=== PATIENT | female | born 1975 | race African-American/Black ===

== ENCOUNTER 2018-12-24 23:00 | Emergency (ER) | payer BC, OTHER ==
[2018-12-24] MEDS ORDERED: diphenhydrAMINE 50 MG/ML VIAL ONE (23:56)
[2018-12-24] MEDS ORDERED: Metoclopramide HCl 10 MG/2 ML VIAL ONE (23:56)
[2018-12-25 00:02] LABS: #Basophils 0.1 thou/uL (0.0-0.2); #Eosinphils 0.2 thou/uL (0.0-0.7); #Monocytes 0.6 thou/uL (0.11-0.59); #Neutrophils 4.5 thou/uL (1.40-6.50); %Basophils 0.8 % (0.0-1.0); %Eosinophils 2.2 % (0.0-10.0); %Lymphocytes 35.5 % (21.0-51.0); %Monocytes 7.1 % (0.0-10.0); %Neutrophils 54.3 % (42.0-75.0); Hemoglobin 13.1 g/dL (12.0-16.0); Mean Corpuscular HGB CONC 34.5 g/dL (32.0-36.0); Mean Corpuscular Hemoglobin 30.7 pg (27.0-31.0); Mean Corpuscular Volume 88.8 fL (78.0-98.0); Mean Platelet Volume 6.7 fL (7.4-10.4); Platelet Count 368 thou/uL (130-400); RBC Distribution Width 11.9 % (11.5-14.5); Red Blood Cell (RBC) Count 4.25 mill/uL (4.20-5.40); White Blood Cell (WBC) Count 8.3 thou/uL (4.8-10.8)
[2018-12-25 00:08] LABS: PTT 28.5 SEC (22.9-36.1); Prothrombin Time 13.3 SEC (12.0-14.7)
[2018-12-25 00:24] LABS: ALT (SGPT) 10 U/L (8-55); AST (SGOT) 13 U/L (5-34); Albumin 4.3 g/dL (3.5-5.0); Alkaline Phosphatase 75 U/L (40-110); Anion Gap 9 mmol/L (10-20); BUN (Urea Nitrogen) 17 mg/dL (7.0-18.7); Bilirubin, Total 0.2 mg/dL (0.2-1.2); Calc. Creatinine Clearance 0 mL/min (70-130); Calcium 9.1 mg/dL (7.8-10.44); Carbon Dioxide 26 mmol/L (22-29); Chloride 107 mmol/L (98-107); Estimated GFR-MDRD 67; Globulin 2.8 g/dL (2.4-3.5); Glucose 101 mg/dL (70-105); Potassium 4.4 mmol/L (3.5-5.1); Protein, Total 7.1 g/dL (6.0-8.3); Sodium 138 mmol/L (136-145)
[2018-12-25 01:13] LABS: Pregnancy Test - Urine (BHCG) Negative (Negative)
[2018-12-25 01:14] LABS: Pregu Control Background? CLEAR/WHITE (CLR/WHITE); Pregu Control Bar Appear? YES (CONTROL BAR); Specific Gravity 1.056 (1.002-1.036)
[2018-12-25 01:29] LABS: Amphetamine Not Detected (NotDetected); Barbiturates Screen Not Detected (NotDetected); Benzodiazepine Screen Not Detected (NotDetected); Cocaine Metabolite Screen Not Detected (NotDetected); Medtox Control Line Valid? VALID (VALID); Medtox Reader # READER 1; Methadone Not Detected (NotDetected); Methamphetamine Not Detected (NotDetected); Opiate Screen Not Detected (NotDetected); Oxycodone Screen Not Detected (NotDetected); Phencyclidine (PCP) Not Detected (NotDetected); THC/Cannabinoid Screen Not Detected (NotDetected); Tricyclic Screen Not Detected (NotDetected)
--- NOTE | 2018-12-25 07:42 | CT ---
PRELIMINARY REPORT/[facility]/EMERGENCY AFTER HOURS PROCEDURE PROCEDURE INFORMATION: Exam: CT Angiography Head Without And With Contrast Exam date and time: 12/25/2018 12:26 AM Clinical history: 43 years old, female; Patient HX: Er 13. Family called because PT was acting differently, having difficulty forming words; Left arm weakness. Patient states that it comes in wave s and she can tell when the next episode is going to happen. HX of migraines. TECHNIQUE: Imaging protocol: Computed tomographic angiography of the head without and with intravenous contrast. 3D rendering: MIP reconstructed images were created and reviewed. COMPARISON: No relevant prior studies available. FINDINGS: Right internal carotid artery: Unremarkable. Intracranial segment is patent with no significant stenosis. No aneurysm. Right anterior cerebral artery: Unremarkable. No occlusion or significant stenosis. No aneurysm. Right middle cerebral artery: Unremarkable. No occlusion or significant stenosis. No aneurysm. Right posterior cerebral artery: Unremarkable. No occlusion or significant stenosis. No aneurysm. Right vertebral artery: Unremarkable. No occlusion or significant stenosis. No aneurysm. Left internal carotid artery: Unremarkable. Intracranial segment is patent with no significant stenosis. No aneurysm. Left anterior cerebral artery: Unremarkable. No occlusion or significant stenosis. No aneurysm. Left middle cerebral artery: Unremarkable. No occlusion or significant stenosis. No aneurysm. Left posterior cerebral artery: Unremarkable. No occlusion or significant stenosis. No aneurysm. Left vertebral artery: Unremarkable. No occlusion or significant stenosis. No aneurysm. Basilar artery: Unremarkable. No occlusion or significant stenosis. No aneurysm. HEAD: Brain: Unremarkable. No hemorrhage. No significant white matter disease. No edema. Ventricles: Normal. No ventriculomegaly. Bones/joints: Unremarkable. No acute fracture. Sinuses: Visualized sinuses are normal. No fluid levels. Mastoid air cells: Visualized mastoids are normal. No mastoid effusion. Soft tissues: Unremarkable. IMPRESSION: No evidence of arterial occlusion or a hemodynamically significant stenosis. No aneurysm or vascular malformation. PROCEDURE INFORMATION: Exam: CT Angiography Neck With Contrast Exam date and time: 12/25/2018 12:26 AM Clinical history: 43 years old, female; Patient HX: Er 13. Family called because PT was acting differently, having difficulty forming words; Left arm weakness. Patient states that it comes in wave s and she can tell when the next episode is going to happen. HX of migraines. TECHNIQUE: Imaging protocol: Computed tomography angiography of the neck with intravenous contrast. 3D rendering: MIP reconstructed images were created and reviewed. COMPARISON: No relevant prior studies available. FINDINGS: VASCULATURE: Right common carotid artery: Unremarkable. No stenosis. No dissection or occlusion. Right internal carotid artery: There is a retropharyngeal course of the right internal carotid artery . The whole No stenosis. No dissection or occlusion. Right external carotid artery: Unremarkable. No occlusion or stenosis of the origin. Right vertebral artery: Unremarkable. No stenosis. No dissection or occlusion. Left common carotid artery: Unremarkable. No stenosis. No dissection or occlusion. Left internal carotid artery: Unremarkable extracranial segment. No stenosis. No dissection or occlusion. Left external carotid artery: Unremarkable. No occlusion or stenosis of the origin. Left vertebral artery: Unremarkable. No stenosis. No dissection or occlusion. NECK: Thyroid: The thyroid gland is heterogeneous in appearance. Bones/joints: No acute fracture. Soft tissues: Normal. No significant soft tissue swelling. IMPRESSION: No acute findings. No evidence of occlusion or dissection. COMMENT: Reference per NASCET criteria for degree of stenosis: Mild: less than 50% stenosis. Moderate: 50- 69% stenosis. Severe: 70-94% stenosis. Near occlusion: 95-99% stenosis. Thank you for allowing us to participate in the care of your patient. Dictated and Authenticated by: Betzy Sandoval MD 12/25/2018 12:55 AM Central Time ([place] & [place]) FINAL REPORT CT ANGIOGRAM OF THE HEAD AND NECK: Date: 12/25/2018 COMPARISON: None. HISTORY: Migraine headaches, altered mental status, weakness. FINDINGS: I agree with the preliminary report. Imaged lung apices unremarkable. Paranasal sinuses and mastoid air cells unremarkable. Limited assessment of the soft tissue structures of the neck appears unremarkable. The arterial structures of the neck are patent. No hemodynamically significant stenosis on the basis of NASCET criteria noted. The provided images include coronal and sagittal 3-D reformatted imaging of the head and neck. There is a medialized retropharyngeal course of the right internal carotid solo ry proximally. No saccular aneurysm, high-grade stenosis, or vascular occlusion is seen involving the intracranial a rterial structures. IMPRESSION: No acute findings. Code QA. Transcribed Date/Time: 12/25/2018 7:50 AM
--- NOTE | 2018-12-25 07:57 | CT ---
PRELIMINARY REPORT/[facility]/EMERGENCY AFTER HOURS PROCEDURE: PROCEDURE INFORMATION: Exam: CT Head Without Contrast Exam date and time: 12/25/2018 12:24 AM Clinical history: 43 years old, female; Altered mental status/memory loss and weakness, extremity; Pa tient HX: Er 13. Family called because PT was acting differently, having difficulty forming words; Le ft arm weakness. Patient states that it comes in waves and she can tell when the next episode is keily g to happen. HX of migraines. TECHNIQUE: Imaging protocol: Computed tomography of the head without contrast. COMPARISON: No relevant prior studies available. FINDINGS: Brain: Normal. No hemorrhage. Unremarkable white matter. No mass effect. Ventricles: Normal. No ventriculomegaly. Bones/joints: Unremarkable. No acute fracture. Sinuses: Visualized sinuses are unremarkable. No fluid levels. Mastoid air cells: Visualized mastoid air cells are well aerated. Soft tissues: Unremarkable. IMPRESSION: No acute intracranial abnormality. Thank you for allowing us to participate in the care of your patient. Dictated and Authenticated by: Betzy Sandoval MD 12/25/2018 12:46 AM Central Time ([place] & [place]) FINAL REPORT EMERGENT AFTER HOURS CT BRAIN WITHOUT CONTRAST: FINDINGS/IMPRESSION: I agree with the findings and impression given in the preliminary report per [facility] physician. No lisa dence of acute intracranial abnormality. POS: ZACK
== END 2018-12-25 02:18 | disposition home or self-care (01) ==
LOC: ERS 23:00
DX: R53.1 Weakness (principal); G43.909 Migraine, unspecified, not intractable, without status migrainosus; J45.909 Unspecified asthma, uncomplicated; F41.9 Anxiety disorder, unspecified
CPT/HCPCS: 36415; 70450; 70496; 70498; 80053; 80306; 81025; 85025; 85610; 85730; 93005; 96361; 96374; 96375; J1200; J2765

== ENCOUNTER 2018-12-27 17:11 | Observation (INO) | payer BC ==
[2018-12-27] MEDS ORDERED: diphenhydrAMINE 50 MG/ML VIAL ONE (18:16)
[2018-12-27] MEDS ORDERED: Metoclopramide HCl 10 MG/2 ML VIAL ONE (18:16)
[2018-12-27 18:21] LABS: #Basophils 0.1 thou/uL (0.0-0.2); #Eosinphils 0.2 thou/uL (0.0-0.7); #Lymphocytes 2.5 thou/uL (1.20-3.40); #Monocytes 0.4 thou/uL (0.11-0.59); %Basophils 0.9 % (0.0-1.0); %Eosinophils 2.9 % (0.0-10.0); %Lymphocytes 35.1 % (21.0-51.0); %Monocytes 6.1 % (0.0-10.0); Hemoglobin 14.1 g/dL (12.0-16.0); Mean Corpuscular HGB CONC 32.1 g/dL (32.0-36.0); Mean Corpuscular Hemoglobin 28.6 pg (27.0-31.0); Mean Corpuscular Volume 89.1 fL (78.0-98.0); Mean Platelet Volume 6.5 fL (7.4-10.4); Platelet Count 412 thou/uL (130-400); Red Blood Cell (RBC) Count 4.93 mill/uL (4.20-5.40); White Blood Cell (WBC) Count 7.2 thou/uL (4.8-10.8)
[2018-12-27 18:25] LABS: Bilirubin Negative (Negative); Blood, Urine Negative (Negative); Clarity Clear (Clear); Glucose, Urine (Dipstick) Normal (Negative); Leukocyte Negative Leu/uL (Negative); Nitrite Negative (Negative); Protein, Urine (Dipstick) Negative (Neg-Trace); Urobilinogen Normal mg/dL (Less than 2)
[2018-12-27 18:35] LABS: Amphetamine Not Detected (NotDetected); Barbiturates Screen Not Detected (NotDetected); Benzodiazepine Screen Not Detected (NotDetected); Cocaine Metabolite Screen Not Detected (NotDetected); Medtox Control Line Valid? VALID (VALID); Medtox Reader # READER 4; Methadone Not Detected (NotDetected); Methamphetamine Not Detected (NotDetected); Opiate Screen Not Detected (NotDetected); Oxycodone Screen Not Detected (NotDetected); Phencyclidine (PCP) Not Detected (NotDetected); THC/Cannabinoid Screen Not Detected (NotDetected); Tricyclic Screen Not Detected (NotDetected)
[2018-12-27 18:41] LABS: ALT (SGPT) 12 U/L (8-55); AST (SGOT) 18 U/L (5-34); Acetaminophen Less than 6.0 mcg/mL (10.0-30.0); Albumin 4.5 g/dL (3.5-5.0); Alcohol Less than 10 mg/dL (Less than 10); Alkaline Phosphatase 66 U/L (40-110); Anion Gap 13 mmol/L (10-20); BUN (Urea Nitrogen) 10 mg/dL (7.0-18.7); Bilirubin, Total 0.4 mg/dL (0.2-1.2); CK (CPK) 118 U/L (29-168); Calc. Creatinine Clearance 0 mL/min (70-130); Calcium 9.6 mg/dL (7.8-10.44); Carbon Dioxide 23 mmol/L (22-29); Chloride 107 mmol/L (98-107); Estimated GFR-MDRD 67; Globulin 3.2 g/dL (2.4-3.5); Glucose 101 mg/dL (70-105); Potassium 4.7 mmol/L (3.5-5.1); Protein, Total 7.7 g/dL (6.0-8.3); Salicylate Less than 8.0 mg/dL (15.0-30.0); Sodium 138 mmol/L (136-145)
--- NOTE | 2018-12-27 18:42 | RAD ---
PORTABLE CHEST: 12/27/18 HISTORY: Headache. Lungs are clear. Heart and mediastinum appears normal. IMPRESSION: Negative chest. POS: AGW
--- NOTE | 2018-12-27 18:53 | CT ---
CT HEAD WITHOUT IV CONTRAST COMPARISON: 12/25/2018 HISTORY: Altered mental status TECHNIQUE: Axial CT imaging at 5 mm intervals from vertex through skull base without contrast FINDINGS: There is no evidence of an acute infarction, hemorrhage, mass effect, or midline shift. The ventricul ar system is normal in size, shape, and position. Visualized paranasal sinuses are clear. Osseous structures appear intact. There has been no interval change when compared to the prior study. IMPRESSION: 1. No acute intracranial abnormality demonstrated.
--- NOTE | 2018-12-27 19:33 | PDOC.FPRHP ---
- History of Present Illness Chief Complaint: Difficulty speaking, headache History of Present Illness: 43-year-old female presents to the ED today complaining of headache and difficulty speaking. Patient stated that she has a history of migraines that she treats with Imitrex. On Monday patient developed a bad headache and she attempted to treat with her home medications with no resolution. But at night it had gotten worse so she went to the emergency department for further evaluation. Work up there including CT head and CTA head and neck was negative for any acute findings. Patient was discharged and later followed up with her PCP Dr. Oates. He started the pt on topiramate and referred for outpt neuro. Today patient developed multiple episodes of worsening headache and difficulty getting out her words accompanied by generalized weakness. Patients mother stated that these episodes last about 5 to 10 minutes at a time and have occurred about 6-7 times today. Patient was re-seen by her PCP who witnessed one of these episodes and subsequently transferred the patient to the emergency department for further evaluation and work up. - Allergies/Adverse Reactions Allergies Allergy/AdvReac Type Severity Reaction Status Date / Time aspirin Allergy Intermediate Verified 12/27/18 22:04 ibuprofen Allergy Intermediate Verified 12/27/18 22:04 - Home Medications Medication Instructions Recorded Confirmed Type ALPRAZolam [Xanax] 0.5 mg PO QID PRN 12/27/18 12/27/18 History Meclizine HCl 25 mg PO DAILY PRN 12/27/18 12/27/18 History Topiramate [Trokendi Xr] 50 mg PO DAILY 12/27/18 12/27/18 History - History PMHx: Migraines, asthma, anxiety PSHx: None FHx: Non contributory Social: No tobacco, occasional alcohol, no illicit drug use - Review of Systems General: denies: fever/chills, weight/appetite/sleep changes Eyes: denies: eye pain, vision changes, other ENT: denies: nasal congestion, rhinorrhea, other Respiratory: denies: cough, shortness of breath Cardiovascular: denies: chest pain, palpitation, edema Gastrointestinal: denies: nausea, vomiting, diarrhea, abdominal pain Genitourinary: denies: incontinence, dysuria, polyuria Skin: denies: rashes, lesions Musculoskeletal: denies: pain, tenderness Neurological: reports: weakness, other (Hedache). denies: numbness, syncope Psychological: reports: anxiety. denies: depression - Vital signs BP: 122/91, Pulse: 86, Resp: 16, Temp: 98.4 (Oral), Pain: 8, O2 sat: 97 on Room Air - Physical Exam Constitutional: NAD, awake, alert and oriented, well developed HEENT: normocephalic and atraumatic, PERRLA, EOMI, no scleral icterus, grossly normal vision, grossly normal hearing, MMM Neck: supple, FROM Heart: RRR, normal S1/S2, no murmurs/rubs/gallops Lungs: CTAB, no respiratory distress, good air movement, no rales/rhonchi, no wheezing Abdomen: soft, non-tender, bowel sounds present Musculoskeletal: normal structure, normal tone -Neurological: Initially: pt displayed no neurologic deficits 3 minute episode: Decreased alertness, following some commands, left sided weakness, aphasia - rapidly resolved Skin: no rash/lesions, good turgor, capillary refill <2 seconds Heme/Lymphatic: no unusual bruising or bleeding, no purpura, no petechia Psychiatric: normal mood and affect, good judgment and insight, intact recent and remote memory FMR H&P: Results - Labs Result Diagrams: 12/27/18 18:11 12/27/18 18:11 Lab results: WBC 7.2 thou/uL (4.8-10.8) 12/27/18 18:11 Hgb 14.1 g/dL (12.0-16.0) 12/27/18 18:11 Hct 44.0 % (36.0-47.0) 12/27/18 18:11 MCV 89.1 fL (78.0-98.0) 12/27/18 18:11 Plt Count 412 thou/uL (130-400) H 12/27/18 18:11 Neutrophils % 55.0 % (42.0-75.0) 12/27/18 18:11 Sodium 138 mmol/L (136-145) 12/27/18 18:11 Potassium 4.7 mmol/L (3.5-5.1) 12/27/18 18:11 Chloride 107 mmol/L (98-107) 12/27/18 18:11 Carbon Dioxide 23 mmol/L (22-29) 12/27/18 18:11 BUN 10 mg/dL (7.0-18.7) 12/27/18 18:11 Creatinine 1.09 mg/dL (0.6-1.1) 12/27/18 18:11 Glucose 101 mg/dL (70-105) 12/27/18 18:11 Calcium 9.6 mg/dL (7.8-10.44) 12/27/18 18:11 Total Bilirubin 0.4 mg/dL (0.2-1.2) 12/27/18 18:11 AST 18 U/L (5-34) 12/27/18 18:11 ALT 12 U/L (8-55) 12/27/18 18:11 Alkaline Phosphatase 66 U/L (40-110) 12/27/18 18:11 Creatine Kinase 118 U/L (29-168) 12/27/18 18:11 Serum Total Protein 7.7 g/dL (6.0-8.3) 12/27/18 18:11 Albumin 4.5 g/dL (3.5-5.0) 12/27/18 18:11 Urine Ketones Negative mg/dL (Negative) 12/27/18 18:01 Urine Blood Negative (Negative) 12/27/18 18:01 Urine Nitrite Negative (Negative) 12/27/18 18:01 Ur Leukocyte Esterase Negative Pricila/uL (Negative) 12/27/18 18:01 - Radiology Interpretation CT scan - head Status: report reviewed by me (No acute intracranial abnormality) Chest x-ray Status: report reviewed by me (Negative CXR) FMR H&P: A/P - Problem List (1) Migraine Current Visit: Yes Status: Chronic Code(s): G43.909 - MIGRAINE, UNSP, NOT INTRACTABLE, WITHOUT STATUS MIGRAINOSUS (2) Complicated migraine Current Visit: Yes Status: Suspected Code(s): G43.109 - MIGRAINE WITH AURA, NOT INTRACTABLE, W/O STATUS MIGRAINOSUS (3) Aphasia Current Visit: Yes Status: Acute Code(s): R47.01 - APHASIA (4) TIA (transient ischemic attack) Current Visit: Yes Status: Suspected Code(s): G45.9 - TRANSIENT CEREBRAL ISCHEMIC ATTACK, UNSPECIFIED - Plan Aphasia, acute AMS, and weakness - Complicated migraine vs Partial seizure vs less likely TIA - Hx of previous migraines - CT headx2 and CTA head and neck negative for acute findings - Neurology consult - EEG and MRI ordered - Bedside dysphagia screen - Continue migraine cocktail for pain - Seizure precautions Anxiety - Resume home xanax Code: Full Dispo: Admit to stroke unit for neuro checks and NIH. EEG, MRI, and neuro consult pending. Expected LOS <48hr FMR H&P: Upper Level - Plan Date/Time: 12/27/181932 I, Agustín Lomax MD, have evaluated this patient and agree with findings/plan as outlined by internal review and audit compliance resident. Pertinent changes/additions are listed here. Carolina Soni is a 43 year old F with a PMH of Migraines and Anxiety who presented to the ED due to persistent migraine. States that she has a long history of migraines that normally last about two days and improve with imitrex. This migraine has been present for 4-5 days and has had no improvement. She was seen in the ED 1-2 days into symptom onset due to worsening of headache and had a negative work up including CT brain and CTA head and neck. She saw her PCP, Dr. Oates, day of admission after she developed episodes of worsening headache with aura accompanied by difficulty with word finding and generalized weakness worse on the left. One of these episodes was witnessed by Dr. Oates which prompted him to recommend that she go to the ED. She had a couple more of these episodes in the ED, witnessed by ERMD and admitting team. Had about 7-8 episodes day of admission. Has never had these episodes before. Appeared drowsy/confused afterwards. In the ED today, she had negative CT brain. CBC and CMP were normal. Serum and Urine Drug screens were negative. She was given Benadryl 25 mg IV, Reglan 10 mg IV and 1 L NS. Vital signs were stable and wnl. On exam, CNII-XII were normal, she had 5 /5 strength in UEs and LEs, no focal deficits noted. No abnormalities seen on exam. Will admit patient to obs stroke. Ordered brain MRI and EEG. Will consult neuro in the AM. Continue migraine cocktail. Anticipate hospital stay < 48 hours. Please see internal review and audit compliance note above for full H&P, which I have reviewed and agree with. Addendum - Attending - Attending Attestation Date/Time: 12/27/18 2215 I personally evaluated the patient and discussed the management with Dr. Hendrix I agree with the History, Examination, Assessment and Plan documented above with any addition or exceptions noted below - 43-year-old female with h/o migraines, anxiety sent to ED today by PCP due to headache and difficulty speaking. Patient stated that she is in history of migraines that she treats with Imitrex. On Monday patient developed a bad headache and she attempted to treat with her home medications with no resolution. But at night it had gotten worse so she went to the emergency department for further evaluation. Work up there including CT head in CTA head and neck was negative for any acute findings. Patient was discharged and later followed up with her PCP Dr. Oates. Today patient developed multiple episodes of worsening headache and difficulty getting out her words accompanied by generalized weakness. Patients mother stated that these episodes last at 5 to 10 minutes at a time. PMH/PSH/Meds/SH reviewed and agree with resident's documentation. Afebrile VSS Exam repeated by me and agree with resident's findings. Labs: WBC=7.2, H/H=14.1/44.0, Nnk=880, Na =138, K=4.7, BUN/Cr=10/1.09. Vaon=588 A/P: 1) Transient aphasia and weakness with SIMS- ?complex migraine vs partial seizure vs TIA- plan for MRI/EEG in AM. Monitor neuro checks. Consult neuro in AM
[2018-12-27] MEDS ORDERED: Ondansetron PF 4 MG/2 ML Vial IVP PRN (21:37)
[2018-12-27] MEDS ORDERED: Acetaminophen 325 MG TAB PO PRN (21:37)
[2018-12-27] MEDS ORDERED: Ondansetron ODT 4 MG TAB SL PRN (21:37)
[2018-12-27] MEDS ORDERED: Ketorolac Tromethamine 30 MG/ML VIAL IVP PRN (21:38)
[2018-12-27 21:51] VITALS: BMI 31.2
[2018-12-28] MEDS: Acetaminophen 325 MG TAB PO PRN ×2 (00:34→21:05)
[2018-12-28] MEDS ORDERED: Meclizine HCl 25 MG TAB PO PRN (01:54)
[2018-12-28] MEDS ORDERED: ALPRAZolam 0.5 MG TAB PO PRN (01:54)
[2018-12-28 05:21] LABS: #Basophils 0.1 thou/uL (0.0-0.2); #Eosinphils 0.3 thou/uL (0.0-0.7); #Lymphocytes 2.7 thou/uL (1.20-3.40); #Monocytes 0.5 thou/uL (0.11-0.59); #Neutrophils 3.6 thou/uL (1.40-6.50); %Basophils 0.9 % (0.0-1.0); %Eosinophils 3.8 % (0.0-10.0); %Lymphocytes 37.8 % (21.0-51.0); %Monocytes 6.6 % (0.0-10.0); Hemoglobin 12.9 g/dL (12.0-16.0); Mean Corpuscular HGB CONC 33.8 g/dL (32.0-36.0); Mean Corpuscular Hemoglobin 30.1 pg (27.0-31.0); Mean Corpuscular Volume 88.9 fL (78.0-98.0); Mean Platelet Volume 6.8 fL (7.4-10.4); Platelet Count 343 thou/uL (130-400); RBC Distribution Width 11.9 % (11.5-14.5); Red Blood Cell (RBC) Count 4.28 mill/uL (4.20-5.40); White Blood Cell (WBC) Count 7.1 thou/uL (4.8-10.8)
[2018-12-28 05:44] LABS: ALT (SGPT) 11 U/L (8-55); AST (SGOT) 16 U/L (5-34); Albumin 3.7 g/dL (3.5-5.0); Alkaline Phosphatase 53 U/L (40-110); Anion Gap 12 mmol/L (10-20); BUN (Urea Nitrogen) 9 mg/dL (7.0-18.7); Bilirubin, Total 0.5 mg/dL (0.2-1.2); Calc. Creatinine Clearance 122 mL/min (70-130); Calcium 8.7 mg/dL (7.8-10.44); Carbon Dioxide 20 mmol/L (22-29); Cardiac Risk 3.4 (Less than 4.5); Chloride 110 mmol/L (98-107); Cholesterol 159 mg/dl (< 200 Desired); Estimated GFR-MDRD 90; Globulin 2.8 g/dL (2.4-3.5); Glucose 93 mg/dL (70-105); HDL Cholesterol 47 mg/dL (>60 Neg Risk); LDL Cholesterol, Calculated 89 mg/dL; Potassium 3.9 mmol/L (3.5-5.1); Protein, Total 6.5 g/dL (6.0-8.3); Sodium 138 mmol/L (136-145); Triglycerides 115 mg/dL (Less than 150)
[2018-12-28] MEDS ORDERED: diphenhydrAMINE 50 MG/ML VIAL IVP SCH (06:00)
[2018-12-28] MEDS ORDERED: Calcium Carbonate 500 MG ChewTAB PO PRN (06:06)
--- NOTE | 2018-12-28 06:11 | PDOC.FM ---
- Subjective Subjective: Overnight pt had 1 additional event witness by her mom at beside. Was similar to previous events where she can feel a "crystal-like" sensation on the side of her head and then becomes aphasic with generalized weakness worse on the left. No pain during the event, slight generalized SIMS after. No bowel or bladder incontinence and no tongue biting. No generalized tonic-clonic movements. Pt is semi-aware during the event, but appears confused and drowsy afterwards but then will return to baseline within 10-15 minutes. Overnight event lasted approx 5 minutes. Denies any CP, SOB, fever/chills, n/v. States she has history of migraines but have previous been resolved with Imitrex. This new events have started within the last week and increased in frequency. No migraine ppx meds in past, recently started Topamax by PCP but was admitted before able to start medication. - Objective MAR Reviewed: Yes Vital Signs & Weight: Vital Signs (12 hours) Temp Pulse Resp BP Pulse Ox 12/28/18 03:36 97.9 F 82 16 116/78 98 12/27/18 23:54 97.8 F 86 16 121/88 98 12/27/18 21:20 98.6 F 68 18 141/98 H 100 Weight Weight 87.906 kg Result Diagrams: 12/28/18 04:54 12/28/18 04:54 Phys Exam - Physical Examination Constitutional: NAD (resting comfortably in bed) HEENT: PERRLA, moist MMs, oral pharynx no lesions no tongue lacerations noted Neck: supple Respiratory: no wheezing, no rales, no rhonchi, clear to auscultation bilateral Cardiovascular: RRR, no significant murmur, no rub Gastrointestinal: soft, non-tender, no distention, positive bowel sounds Musculoskeletal: no edema, pulses present 5/5 strength throughout Neurological: non-focal, normal sensation, moves all 4 limbs CN II-XII intact Psychiatric: normal affect, A&O x 3 Dx/Plan (1) Aphasia Code(s): R47.01 - APHASIA Status: Acute (2) Migraine Code(s): G43.909 - MIGRAINE, UNSP, NOT INTRACTABLE, WITHOUT STATUS MIGRAINOSUS Status: Chronic (3) Complicated migraine Code(s): G43.109 - MIGRAINE WITH AURA, NOT INTRACTABLE, W/O STATUS MIGRAINOSUS Status: Suspected (4) TIA (transient ischemic attack) Code(s): G45.9 - TRANSIENT CEREBRAL ISCHEMIC ATTACK, UNSPECIFIED Status: Suspected - Plan Plan: 43yo F with h/o migraines and anxiety presents for multiple episodes of aphasia , generalized weakness, and confusion admitted for concern for complicated migraines vs partial seziure vs TIA #Aphasia, acute AMS, and weakness - Complicated migraine vs Partial seizure - Hx of previous migraines, but newonset of weakness and increased frequency - very low suspicion for TIA 2/2 complete resolution of sxs within minutes, low risk factors, and frequency of events - Partial seizure vs complicated migraine with quinn-plegia - CT headx2 and CTA head and neck negative for acute findings - Neurology consult, Dr. Sanders, apprec recs - EEG and MRI pending - Bedside dysphagia screen - Continue migraine cocktail for pain prn - Seizure precautions - UDS negative, UA clean, CBC and CMP WNL, TSH normal #H/o migraines - concern for complex migraines with hemiplegia - prn migraine cocktail - Holding topamax at this time due to pt not started at home yet, will await neuro recs and EEG/MRI results #Anxiety, stable - cont home xanax Code: Full VTE: Low risk Diet: Regular IVF: SL Dispo: Admitted to stroke unit for neuro checks and NIH. EEG, MRI, and neuro consult pending. Expected LOS <48hr pending clinical status. Addendum - Attending - Attending Attestation Date/Time: 12/28/18 2881 I personally evaluated the patient and discussed the management with Dr. Dobbins I agree with the History, Examination, Assessment and Plan documented above with any addition or exceptions noted below. Patient under evaluation most likely Complex migraine however prudent and necessary evaluation currently undergoing an EEG, further imaging and Neurology consultation. Stop any further triptans
[2018-12-28] MEDS ORDERED: Aspirin 81 mg Enteric Coated Tablet PO SCH (09:00)
[2018-12-28] MEDS: Metoclopramide HCl 10 MG/2 ML VIAL IVP PRN ×2 (10:20→21:05)
--- NOTE | 2018-12-28 11:11 | MRI ---
MRI BRAIN WITH AND WITHOUT CONTRAST: DATE: 12/28/18 HISTORY: 43-year-old female with seizure disorder and headache. CVA vs. TIA. TECHNIQUE: Multiple sequences obtained in axial, sagittal, and coronal planes; pre and post IV injection of gado linium-based contrast agent: 17 mL MultiHance. FINDINGS: The ventricles are normal in size and configuration. There is no major intraaxial signal abnormality , restricted diffusion, abnormal intraaxial enhancement, mass, midline shift or any other mass effect , recent intraaxial hemorrhage, or extraaxial fluid collection. IMPRESSION: Normal. jn[] POS: TPC
[2018-12-28] MEDS: diphenhydrAMINE 50 MG/ML VIAL IVP PRN ×2 (15:14→21:06)
--- NOTE | 2018-12-29 05:50 | PDOC.FM ---
- Subjective Subjective: Did well overnight, no acute events. Last "episode" was yesterday morning prior to EEG. No episodes during EEG. Slight SIMS yesterday, controlled with meds. No SIMS this morning. Denies any vision changes, focal deficits, n/v, CP, SOB, fever/ chills. Spoke with neurology yesterday who stated EEG and MRI negative, awaiting further recommendations this morning. - Objective MAR Reviewed: Yes Vital Signs & Weight: Vital Signs (12 hours) Temp Pulse Resp BP Pulse Ox 12/29/18 04:00 97.6 F 81 16 97/68 98 12/29/18 00:00 99.3 F 77 16 119/71 98 12/28/18 19:36 99.5 F 83 16 119/88 99 Weight Weight 87.906 kg I&O: 12/27/18 12/28/18 12/29/18 06:59 06:59 06:59 Intake Total 240 1110 Output Total 50 Balance 190 1110 Result Diagrams: 12/28/18 04:54 12/28/18 04:54 EKG Reviewed by me: Yes (NSR on Tele) Phys Exam - Physical Examination Constitutional: NAD (resting comfortably) HEENT: PERRLA, moist MMs Neck: supple Respiratory: no wheezing, no rales, no rhonchi, clear to auscultation bilateral Cardiovascular: RRR, no significant murmur, no rub Gastrointestinal: soft, non-tender, no distention, positive bowel sounds Musculoskeletal: no edema 5/5 strength BL Neurological: non-focal, normal sensation, moves all 4 limbs CN II-XII intact Psychiatric: normal affect, A&O x 3 Dx/Plan (1) Aphasia Code(s): R47.01 - APHASIA Status: Acute (2) Migraine Code(s): G43.909 - MIGRAINE, UNSP, NOT INTRACTABLE, WITHOUT STATUS MIGRAINOSUS Status: Chronic (3) Complicated migraine Code(s): G43.109 - MIGRAINE WITH AURA, NOT INTRACTABLE, W/O STATUS MIGRAINOSUS Status: Suspected (4) TIA (transient ischemic attack) Code(s): G45.9 - TRANSIENT CEREBRAL ISCHEMIC ATTACK, UNSPECIFIED Status: Suspected - Plan Plan: 43yo F with h/o migraines and anxiety presents for multiple episodes of aphasia , generalized weakness, and confusion admitted for concern for complicated migraines vs partial seziure #Aphasia, acute AMS, and weakness - Complicated migraine vs Partial seizure - Hx of previous migraines, but new-onset episodes of weakness, aphasia, and possible post-ictal state. Sxs now resolved. - very low suspicion for TIA 2/2 complete resolution of sxs within minutes, low risk factors, and frequency of events - Partial seizure vs complicated migraine with quinn-plegia - CT headx2 and CTA head and neck negative for acute findings - MRI negative for acute findings - Neurology consult, Dr. Sanders, apprec recs, pt states was told EEG normal, will await official consult report and recommendations - EEG report pending - Continue migraine cocktail for pain prn - Seizure precautions - UDS negative, UA clean, CBC and CMP WNL, TSH normal, Procal 68.16 suggestive of post-seizure state, however non-specific #H/o migraines - concern for complex migraines with hemiplegia - prn migraine cocktail - Holding topamax at this time due to pt not started at home yet, will await neuro recs and EEG/MRI results #Anxiety, stable - cont home xanax Code: Full VTE: Low risk, ambulate with assist Diet: Regular IVF: SL Dispo: Admitted to stroke unit for neuro checks and NIH. EEG and neuro recommendations pending. Expected LOS <48hr pending clinical status and neurology, apprec assistance.
[2018-12-29 15:27] VITALS: BP 120/88; TEMP 98.9
--- NOTE | 2018-12-30 13:57 | CON ---
DATE OF TELEMEDICINE CONSULTATION: 12-30-18 CHIEF COMPLAINT: History of migraine and weakness. HISTORY OF PRESENT ILLNESS: Patient had migraine since Monday. She took sumatriptan at 1:00 p.m. on Monday. She also took her inhaler and Excedrin and she felt like she was having difficulty breathing and she was passing out. She had slurred speech. She had left arm numbness. There was no witnessed account of any seizures or history of seizures. PREVIOUS MEDICAL HISTORY: Patient has history of migraine headaches since the last 11 years and she has asthma and anxiety disorder. PAST SURGICAL HISTORY: None. FAMILY HISTORY: Negative for any neurological illness. SOCIAL HISTORY: She does not smoke. She drinks occasional alcohol. No drug use. REVIEW OF SYSTEMS: PULMONARY: Negative for shortness of breath or cough. GI: Negative for nausea, vomiting, or diarrhea. OPHTHALMOLOGIC: Negative for any vision issues. DERMATOLOGIC: Negative for any skin rash or bleeding diathesis. HEMATOLOGICAL: Negative for any problems, such as anemia. LABORATORY DATA: Her workup includes laboratory workup; white count 7.1, hemoglobin 12.9, hematocrit 38, and platelet count 343. Sodium 138, potassium 3.9, chloride 110, bicarb 20, BUN 9, and creatinine 0.84. Lipid profile was within normal limits. Prolactin 68.16. Toxicology was negative. ER physician's report was reviewed and noted and patient has history of headache , tingling, and episodes of lightheadedness. Patient had an MRI of the brain, which was negative for any acute intracranial injury or insult and it was a normal MRI. PHYSICAL EXAMINATION: VITAL SIGNS: Temperature 99.5, pulse 83, respiratory rate 16, and blood pressure 130/81. GENERAL APPEARANCE: Well-built, well-nourished lady, who seems to be uncomfortable. CHEST: Clear vesicular breathing. CARDIOVASCULAR: S1 and S2 heard. No murmurs. ABDOMEN: Soft and nontender. No organomegaly noted. NEUROLOGICAL EXAMINATION: Higher intellectual functions. Normal orientation to time, place, and person. Appropriate conversation. Cranial nerves, normal extraocular movements. Tongue midline. No atrophy noted. No facial asymmetry. Decreased sensation of face on the left side. Normal hearing to finger rub. Motor bulk normal, tone normal, strength 5/5 on the right side. On the left side, generalized, her strength was 4/5 throughout, both on the right and left side. Muscle groups tested deltoid, biceps, triceps, wrist extension and flexion, finger extension and flexion, iliopsoas, hamstrings, quadriceps, ankle dorsiflexion, plantar flexion, and deep tendon reflexes 1+ throughout. Sensory normal to touch on the right, decreased on the left side. Cerebellar was normal. IMPRESSION: Patient is a 43-year-old lady with history of migraine. I am not sure what these sources of lightheadedness are. Could be related to her migraine and she has left-sided FAL numbness and generalized weakness noted was due to decreased effort as well and her not feeling well. DIAGNOSIS: Most likely complicated migraine. RECOMMENDATIONS: Please monitor for any other neurological changes. It may take her up to one week to recover from these events. I will follow up the patient again tomorrow. Job ID: [id number] MTDD
--- NOTE | 2018-12-31 12:50 | PRG ---
DATE OF SERVICE: 12/29/2018 Please see the note from Dr. Dobbins, for which I agree. The patient was seen, evaluated, discussed, and examined with the residents by bedside. She had 1 little minor spell last night in a stressful situation while the family members around, where she states she felt like she had the aura where she felt like that her left lutheran had "crystals," which is what she has basically been complaining of. Then, she states she had about only 1 or 2 seconds of feeling like she was about to have the slurring of speech and left-sided arm weakness and she did admit that her left arm felt a little bit numb when this happened, but the whole thing was just split seconds and then seemed to resolve. EEG is still pending and we are still waiting to see what Neurology says about her. I want to know what the recommendations are, if we need to consider something like seizure prevention or just headache prevention or possibly both; certainly Depakote could potentially do both. I want to get their opinion if they think these are seizures. I did warn her that if these are seizures, she should not drive for at least six months until we have her seizure-free, so we will see what Neurology says, hopefully be able to discharge her today. Job ID: [id number]
--- NOTE | 2019-01-01 13:49 | DIS ---
DATE OF ADMISSION: 12/27/2018 DATE OF DISCHARGE: 12/29/2018 RESIDENT: Teto Dobbins MD ADMITTING ATTENDING: Shirin Monsalve MD. DISCHARGE ATTENDING: Jules Oates MD CONSULTS: Sultana Sanders MD., Neurology. PROCEDURES: 1. Brain CT on 12/27/2018, demonstrating no acute intracranial abnormality. 2. Chest x-ray on 12/27/2018, demonstrating no acute cardiopulmonary process. 3. Brain MRI on 12/28/2018, demonstrating no intracranial abnormality. 4. EEG on 12/28/2018 in verbal report, no abnormalities, formal read pending. PRIMARY DIAGNOSIS: Complex migraine. SECONDARY DIAGNOSES: 1. History of migraines. 2. Anxiety. DISCHARGE MEDICATIONS: 1. Meclizine 25 mg p.o. daily p.r.n. 2. Xanax 0.5 mg p.o. q.i.d. p.r.n. DISCONTINUED MEDICATIONS: Topiramate XR 50 mg p.o. daily. SIGNIFICANT LABS: White blood cell count 7.1, hemoglobin 12.9, and platelets 343. GFR 90. TSH 0.8199. Prolactin 68.16. UDS and UA clean. HISTORY OF PRESENT ILLNESS AND HOSPITAL COURSE: The patient is a 43-year-old female who presented to the ED, complaining of headache, difficulty speaking. The patient stated that she has a history of migraines, treated with Imitrex and that on Monday developed a severe headache that did not respond to her home medications. She stated that she went into the emergency room, and at that time, had CT and CTA head and neck that were negative for any acute findings. The patient was given medications with resolution of headache and discharged to follow with her primary care physician. She was seen by primary care physician in the morning of admission and was started on topiramate; however, began to experience multiple episodes of the worsening headaches, difficulty with speech and generalized weakness greater on the left. These episodes lasting in 5 to 10 minutes after which she has a 10- to 15-minute episode of confusion and then returned to baseline. These events were happened 6 to 7 times on the day of admission. She was recently seen by her PCP, who witnessed the episodes and subsequently referred the patient to emergency department for further evaluation and management. In the ED, repeat imaging was negative as per above. Family Medicine Team was consulted for further evaluation and management. The patient was admitted to the floor and placed on seizure precautions, was given migraine medications p.r.n. EEG and MRI were ordered. Neurology was consulted. The patient's home Xanax was continued. Initial lab work was unremarkable. Overnight, the patient did have a few more events witnessed by her mother. The patient stated she had a crystal like sensation on the side of her head and becomes aphasic with generalized weakness, worse on the left. She has a generalized headache afterwards. No bowel or bladder incontinence. No tongue biting. No generalized tonic-clonic movements. The patient is semi aware during the event , but does appear confused and drowsy afterwards for 15-20 minutes. The patient denies any chest pain, shortness of breath, fever, chills, nausea, vomiting, or other pain. Neurology was consulted, who saw and examined patient. EEG was obtained. The patient has had one more episode. We then had an uneventful second hospital night with no more events. On the morning of discharge, Neurology saw the patient again and reported that this is most likely a complex migraine. However, stated the patient could follow up as an outpatient and would not be started on any prophylactic medication at this time. The patient was told to discontinue her Imitrex and Topamax. Repeat labs were all again unremarkable. The patient did not have any more events throughout the day. Discharge plan was discussed with the patient and family at bedside, who voiced agreement and understanding of discharge plan to follow up with neurologist, Dr. Hollins and follow up with primary care physician, Dr. Oates within the next week. Return precautions were given. All questions were answered appropriately. DISPOSITION: Stable. DISCHARGE INSTRUCTIONS: 1. Location: Home. 2. Diet: Regular. 3. Activity: As tolerated. 4. Followup: The patient should follow up with her primary care physician, Dr. Oates within [address] Hollins as scheduled. Job ID: [id number] [facility]
== END 2018-12-29 20:30 | disposition home or self-care (01) ==
LOC: ERS 17:11 → 2SE 19:24
PROVIDERS: ADMIT Family Medicine; ATTEND Family Medicine
DX: G43.109 Migraine with aura, not intractable, without status migrainosus (principal); R47.01 Aphasia; R53.1 Weakness; J45.909 Unspecified asthma, uncomplicated; F41.9 Anxiety disorder, unspecified; Z79.899 Other long term (current) drug therapy; Z88.6 Allergy status to analgesic agent; Z88.8 Allergy status to other drugs, medicaments and biological substances
CPT/HCPCS: 36415; 51701; 70450; 70553; 71045; 80053; 80061; 80306; 80307; 81003; 82550; 83735; 84146; 84443; 85025; 85652; 95816; 95819; 96361; 96374; 96375; 96376; G0378; J1200; J2765; J8597

== ENCOUNTER 2019-02-01 14:50 | Emergency (ER) | payer BC ==
[2019-02-01 16:04] LABS: #Eosinphils 0.1 thou/uL (0.0-0.7); #Lymphocytes 2.1 thou/uL (1.20-3.40); #Monocytes 0.4 thou/uL (0.11-0.59); #Neutrophils 2.3 thou/uL (1.40-6.50); %Basophils 0.7 % (0.0-1.0); %Eosinophils 3.1 % (0.0-10.0); %Lymphocytes 42.8 % (21.0-51.0); %Monocytes 7.4 % (0.0-10.0); %Neutrophils 46.1 % (42.0-75.0); Hemoglobin 12.5 g/dL (12.0-16.0); Mean Corpuscular Hemoglobin 29.2 pg (27.0-31.0); Mean Corpuscular Volume 88.3 fL (78.0-98.0); Mean Platelet Volume 6.7 fL (7.4-10.4); Platelet Count 314 thou/uL (130-400); RBC Distribution Width 11.2 % (11.5-14.5); White Blood Cell (WBC) Count 4.9 thou/uL (4.8-10.8)
[2019-02-01 16:26] LABS: ALT (SGPT) 9 U/L (8-55); AST (SGOT) 11 U/L (5-34); Acetaminophen Less than 6.0 mcg/mL (10.0-30.0); Albumin 3.9 g/dL (3.5-5.0); Alcohol Less than 10 mg/dL (Less than 10); Alkaline Phosphatase 70 U/L (40-110); Anion Gap 10 mmol/L (10-20); BUN (Urea Nitrogen) 11 mg/dL (7.0-18.7); Bilirubin, Total 0.3 mg/dL (0.2-1.2); Calc. Creatinine Clearance 0 mL/min (70-130); Carbon Dioxide 26 mmol/L (22-29); Chloride 109 mmol/L (98-107); Estimated GFR-MDRD 81; Globulin 2.8 g/dL (2.4-3.5); Glucose 85 mg/dL (70-105); Lipase 24 U/L (8-78); Magnesium 1.9 mg/dL (1.6-2.6); Potassium 3.9 mmol/L (3.5-5.1); Protein, Total 6.7 g/dL (6.0-8.3); Salicylate Less than 8.0 mg/dL (15.0-30.0); Sodium 141 mmol/L (136-145)
[2019-02-01 17:24] LABS: Bilirubin Negative (Negative); Blood, Urine Negative (Negative); Clarity Clear (Clear); Glucose, Urine (Dipstick) Normal (Negative); Leukocyte Negative Leu/uL (Negative); Nitrite Negative (Negative); Protein, Urine (Dipstick) Negative (Neg-Trace); Urobilinogen Normal mg/dL (Less than 2)
[2019-02-01 17:27] LABS: Pregnancy Test - Urine (BHCG) Negative (Negative); Pregu Control Background? CLEAR/WHITE (CLR/WHITE); Pregu Control Bar Appear? YES (CONTROL BAR); Specific Gravity 1.027 (1.002-1.036)
[2019-02-01 17:33] LABS: Medtox Reader # READER 4
[2019-02-01 17:34] LABS: Amphetamine Not Detected (NotDetected); Barbiturates Screen Detected (NotDetected); Benzodiazepine Screen Not Detected (NotDetected); Cocaine Metabolite Screen Not Detected (NotDetected); Medtox Control Line Valid? VALID (VALID); Methadone Not Detected (NotDetected); Methamphetamine Not Detected (NotDetected); Opiate Screen Not Detected (NotDetected); Oxycodone Screen Not Detected (NotDetected); Phencyclidine (PCP) Not Detected (NotDetected); THC/Cannabinoid Screen Not Detected (NotDetected); Tricyclic Screen Not Detected (NotDetected)
== END 2019-02-01 18:05 | disposition home or self-care (01) ==
LOC: ERS 14:50
DX: R42 Dizziness and giddiness (principal); G43.909 Migraine, unspecified, not intractable, without status migrainosus; J45.909 Unspecified asthma, uncomplicated; F41.9 Anxiety disorder, unspecified; Z79.899 Other long term (current) drug therapy
CPT/HCPCS: 36415; 80053; 80306; 80307; 81003; 81025; 83690; 83735; 84443; 85025; 93005

== ENCOUNTER 2021-01-23 12:20 | Emergency (ER) | payer BC ==
[2021-01-23 13:24] LABS: #Eosinphils 0.1 thou/uL (0.0-0.7); #Lymphocytes 2.1 thou/uL (1.20-3.40); #Monocytes 0.4 thou/uL (0.11-0.59); #Neutrophils 2.1 thou/uL (1.40-6.50); %Basophils 0.7 % (0.0-1.0); %Eosinophils 2.3 % (0.0-10.0); %Lymphocytes 44.5 % (21.0-51.0); %Monocytes 8.5 % (0.0-10.0); %Neutrophils 44.1 % (42.0-75.0); Hemoglobin 13.1 g/dL (12.0-16.0); Mean Corpuscular HGB CONC 34.6 g/dL (32.0-36.0); Mean Corpuscular Volume 89.4 fL (78.0-98.0); Mean Platelet Volume 6.7 fL (7.4-10.4); Platelet Count 313 thou/uL (130-400); RBC Distribution Width 11.4 % (11.5-14.5); Red Blood Cell (RBC) Count 4.24 mill/uL (4.20-5.40); White Blood Cell (WBC) Count 4.8 thou/uL (4.8-10.8)
[2021-01-23 13:35] LABS: BHCG - Serum Negative (NEGATIVE); Pregs Control Background? CLEAR/WHITE (CLR/WHITE); Pregs Control Bar Appear? YES (CONTROL BAR)
[2021-01-23 13:43] LABS: ALT (SGPT) 10 U/L (8-55); AST (SGOT) 12 U/L (5-34); Alkaline Phosphatase 66 U/L (40-110); Anion Gap 10 mmol/L (10-20); BUN (Urea Nitrogen) 6 mg/dL (7.0-18.7); Bilirubin, Total 0.5 mg/dL (0.2-1.2); Calc. Creatinine Clearance 0 mL/min (70-130); Calcium 9.4 mg/dL (7.8-10.44); Carbon Dioxide 25 mmol/L (22-29); Chloride 109 mmol/L (98-107); Globulin 2.9 g/dL (2.4-3.5); Glucose 80 mg/dL (70-105); Potassium 4.4 mmol/L (3.5-5.1); Protein, Total 6.9 g/dL (6.0-8.3); Sodium 140 mmol/L (136-145)
== END 2021-01-23 15:02 | disposition home or self-care (01) ==
LOC: ERS 12:20
DX: R55 Syncope and collapse (principal); G43.909 Migraine, unspecified, not intractable, without status migrainosus; J45.909 Unspecified asthma, uncomplicated
CPT/HCPCS: 36416; 70450; 80053; 84484; 84703; 85025; 85379; 93005

== ENCOUNTER → 2024-01-31 | Emergency (ER) | payer BC ==
[2024-02-05 15:27] LABS: ALT (SGPT) 10 U/L (8-55); AST (SGOT) 13 U/L (5-34); Albumin 3.6 g/dL (3.5-5.0); Alkaline Phosphatase 64 U/L (40-110); Anion Gap 11 mmol/L (10-20); BUN (Urea Nitrogen) 11 mg/dL (7.0-18.7); Bilirubin, Total 0.3 mg/dL (0.2-1.2); Calc. Creatinine Clearance 0 mL/min (70-130); Calcium 8.4 mg/dL (7.8-10.44); Carbon Dioxide 22 mmol/L (22-29); Chloride 111 mmol/L (98-107); Estimated GFR 82; Globulin 2.8 g/dL (2.4-3.5); Glucose 135 mg/dL (70-105); Potassium 3.2 mmol/L (3.5-5.1); Protein, Total 6.4 g/dL (6.0-8.3); Sodium 141 mmol/L (136-145)
[2024-02-06 09:17] LABS: %Eosinophils 2.4 % (0.0-10.0); %Lymphocytes 28.8 % (21.0-51.0); %Monocytes 6.6 % (0.0-10.0); %Neutrophils 61.3 % (42.0-75.0); Hematocrit 35.9 % (36.0-47.0); Hemoglobin 11.8 g/dL (12.0-16.0); Mean Corpuscular HGB CONC 32.9 g/dL (32.0-36.0); Mean Corpuscular Hemoglobin 29.5 pg (27.0-31.0); Mean Corpuscular Volume 89.8 fL (78.0-98.0); Mean Platelet Volume 9.2 fL (7.4-10.4); Platelet Count 296 10x3/uL (130-400); White Blood Cell (WBC) Count 5.79 10x3/uL (4.8-10.8)
[2024-02-06 09:18] LABS: #Basophils 0.04 10x3/uL (0.0-0.2); #Eosinophils 0.14 10x3/uL (0.0-0.7); #Monocytes 0.38 10x3/uL (0.11-0.59); #Neutrophils 3.55 10x3/uL (1.40-6.50); %Basophils 0.7 % (0.0-1.0)
== END ==
LOC: ERS 23:00
DX: G40.409 Other generalized epilepsy and epileptic syndromes, not intractable, without status epilepticus (principal); Z55.6 Problems related to health literacy
CPT/HCPCS: 80053; 85025; 99284